=== PATIENT | male | born 1945 | race Caucasian/White ===

== ENCOUNTER 2019-06-28 10:36 | Day surgery (SDC) ==
[~2019-06-28 10:36] MED LIST: DIPRIVAN 1% ONE; QUELICIN (DOSE) ONE; ROBINUL ONE; XYLOCAINE-MPF 2% ONE
[2019-06-28] MEDS ORDERED: CLINDAMYCIN 900 MG/D5W 900 MG/50 ML IVPB ONE (10:48)
[2019-06-28] MEDS ORDERED: REGLAN ONE (10:48)
[2019-06-28] MEDS ORDERED: LR 1,000 ML ONE ×2 (10:48→11:35)
[2019-06-28] MEDS ORDERED: PEPCID ONE (10:48)
[2019-06-28] MEDS ORDERED: MARCAINE 0.5% ONE (11:34)
[2019-06-28] MEDS ORDERED: SODIUM CHLORIDE 0.9% ONE (11:34)
[2019-06-28] MEDS ORDERED: OFIRMEV 1000 MG/ISOTONIC SOLN 1,000 MG/100 ML BOTTLE ONE (11:57)
[2019-06-28] MEDS ORDERED: ZEMURON ONE ×2 (11:57→13:31)
[2019-06-28] MEDS ORDERED: DECADRON ONE (12:07)
[2019-06-28] MEDS ORDERED: ZOFRAN ONE (12:07)
[2019-06-28] MEDS ORDERED: TORADOL ONE (12:07)
[2019-06-28] MEDS ORDERED: EPHEDRINE ONE (12:13)
[2019-06-28] MEDS ORDERED: FENTANYL ONE (12:30)
[2019-06-28] MEDS ORDERED: NEOSTIGMINE ONE (13:31)
[2019-06-28] MEDS ORDERED: ROBINUL ONE (13:32)
[2019-06-28] MEDS ORDERED: ZOFRAN IV PRN (14:53)
[2019-06-28] MEDS ORDERED: MORPHINE IV PRN (14:53)
[2019-06-28] MEDS: NORCO-7.5 PO PRN ×2 (17:41→21:47)
--- NOTE | 2019-06-28 20:47 | OPERATIVE NOTE ---
PROCEDURE DATE: 06/28/2019 PREOPERATIVE DIAGNOSIS: Symptomatic cholelithiasis. POSTOPERATIVE DIAGNOSIS: Cholelithiasis with chronic fibrotic cholecystitis. PROCEDURE PERFORMED: Fenestrating cholecystectomy. ANESTHESIA: General. INDICATIONS: A gentleman who has had several episodes of right upper quadrant pain that seemed to be self-limiting resolved. He had gallstones noted on ultrasound. ESTIMATED BLOOD LOSS: 20 mL. SPECIMENS: Gallbladder and gallstones. OPERATIVE FINDINGS: There was a densely inflamed gallbladder with very thickened rind. There were dense, inseparable adhesions between the transverse colon, the duodenum, and the infundibulum of the gallbladder. Several stones within the lumen. 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 OPERATIVE NOTE: Risks, benefits, and alternatives were discussed. Patient consented to the procedure. Seen preoperatively. Surgical site was confirmed. He was taken to the operating room and placed in supine position. General anesthesia was induced. The abdomen was prepped with chlorhexidine solution after hair was removed with clippers, and draped in the usual fashion. After time-out, a supraumbilical incision was made, carried down to the fascia. The fascia was incised and the abdomen was entered in open controlled fashion. A 12 mm Lupe trocar was placed. We then placed 3 additional 5 mm trocars across the costal margin. The gallbladder was grasped and retracted cephalad. The transverse colon was densely adherent up to this. We took down some of the omentum and began our dissection down the body of the gallbladder, but we encountered dense fibrotic adhesions that were inseparable from what we felt was the transverse colon. We could not enter a safe plane. Openings were made in the gallbladder and we inspected the plane both from inside the gallbladder and externally. Stones were removed with a stone grasper after upsizing the epigastric port to a 10 mm. After working carefully for an hour, we feared that we would injure the colon or the duodenum, and as such, even more concerning would be the portal structures which were inseparable from this inflammatory process. As such, we elected to perform a fenestrating cholecystectomy. We removed the gallbladder at the infundibulum body junction, and we were able to safely separate the posterior wall from the gallbladder fossa, leaving the infundibulum intact. The stones were all removed. We cauterized the mucosa. We did not feel that we had injured the colon or the duodenum during this. We observed. I did not see any clear evidence of bile leaking in a retrograde fashion. We did attempt to obliterate and somewhat reapproximate the infundibulum with clips, but this was, for the most part, unsuccessful, and a drain was left in the gallbladder fossa. We secured it through the lateral port with a nylon suture. We then closed the fascia, bringing the gallbladder out with an EndoCatch bag using 0 Vicryl. Skin was closed with Monocryl. Dermabond was applied. He was awoken and transferred to Recovery where his drain remained serosanguineous. We will observe him tonight for possible bile leak and need for ERCP. I discussed these findings with the family and the patient. cc: Harinder Gonzales MD
[2019-06-28] MEDS: MELATONIN PO SCH (23:09)
[2019-06-29] MEDS: PERIDEX MT SCH ×3 (01:08→22:05)
[2019-06-29] MEDS: LR 1,000 ML IV SCH ×3 (02:36→23:35)
[2019-06-29] MEDS: PROTONIX PO SCH ×2 (05:48→07:57)
[2019-06-29] MEDS: NORCO-7.5 PO PRN ×3 (05:48→22:04)
[2019-06-29] MEDS: TENORMIN PO SCH (08:01)
[2019-06-29] MEDS ORDERED: INDOCIN ONE (12:08)
[2019-06-29] MEDS ORDERED: DIPRIVAN 1% ONE ×3 (13:05→14:14)
[2019-06-29] MEDS ORDERED: XYLOCAINE-MPF 2% ONE (13:05)
[2019-06-29] MEDS ORDERED: FENTANYL ONE (13:07)
[2019-06-29] MEDS ORDERED: GLUCAGON ONE (14:11)
--- NOTE | 2019-06-29 14:41 | ENDOSCOPY OPERATIVE NOTE ---
[facility] ENDOSCOPY OPERATIVE NOTE , ERCP PROCEDURE REPORT EXAM DATE: 06/29/2019 PATIENT NAME: Farhan Alejandro MR #: [id number] BIRTHDATE: 1945 ATTENDING: Ludin Welch MD STATUS: inpatient P[facility]IDE ATTENDANT: Isabella Rubio, Betsey Cook, and Hina Darling INDICATIONS: The patient is a 73 yr old male here for an ERCP due to suspected or rule out a bile le ak. PROCEDURE PERFORMED: ERCP with cannulation of papilla MEDICATIONS: Per Anesthesia CONSENT: The patient understands the risks and benefits of the procedure and understands that these r isks include, but are not limited to: sedation, allergic reaction, infection, perforation and/or bleeding. Alternative means of evaluation and treatment include, among others: physical exam, x-rays, and/or surgical intervention. The patient elects to proceed with this endoscopic procedure. HISTORY AND PHYSICAL: 06/29/2019 DESCRIPTION OF PROCEDURE: During intra-op preparation period all mechanical and medical equipment was checked for proper function. Hand hygiene and appropriate measures for infection prevention was taken. After the risks, benefits and alternatives of the procedure were thoroughly explained, Informed was verified, confirmed and timeout was successfully executed by the treatment team. With the patient in left semi-prone position, medications were admini stered intravenously.The [id number] ([id number]) and [id number] ([id number]) was passed from the mouth into the esoph eve and further advanced from the esophagus into the stomach. From stomach scope was directed to the second portion o f the duodenum. Major papilla was aligned with the duodenoscope. The scope position was confirmed fluoroscopically. R est of the findings/therapeutics are given below. The scope was then completely withdrawn from the patient and t he procedure completed. The pulse, BP, and O2 saturation were monitored and documented by the physician and the nu ing staff throughout the entire procedure. The patient was cared for as planned according to standard protocol. The patient was then discharged to recovery in stable condition and with appropriate post procedure care. ERCP: A crabbing machine operator film prior to endoscope insertion appeared normal. The Major Papilla was located in t he second portion of the duodenum. The papilla appeared smaller than normal. Common bile duct could not be cannulate d. ADVERSE EVENT: There were no complications. IMPRESSIONS: CBD cannulation attempted. RECOMMENDATIONS: 1. Resume current medications 2. Repeat liver function test in 1 day(s) 3. Disposition 4. Return to floor when standard parameters are met 5. Will follow. REPEAT EXAM: Return in 2 days for ERCP. Ludin Welch MD eSigned: Ludin Welch MD 06/29/2019 2:41 PM cc: Sky Gonzales MD PATIENT NAME: Farhan Alejandro MR#: [id number]
--- NOTE | 2019-06-29 15:03 | GASTROENTEROLOGY CONSULTATION ---
DATE: 06/29/2019 REASON FOR CONSULTATION: Request for ERCP. HISTORY OF PRESENT ILLNESS: This is a 73-year-old, white male who came in for an outpatient cholecystectomy on 06/28/2019. Surgery was performed by Dr. Gonzales. During surgery, findings showed densely inflamed gallbladder with very thickened rind with dense, inseparable adhesions between the transverse colon, the duodenum, and the infundibulum of the gallbladder with several stones noted in the lumen and apparent chronically occluded cystic duct. Patient, currently at the time of my evaluation, is in no acute distress. Dr. Welch was consulted for an ERCP for a possible bile leak. The patient states he had a gallbladder attack in early June. PAST MEDICAL HISTORY: Coronary artery disease with history of angioplasty, history of hypertension, hypercholesterolemia. PAST SURGICAL HISTORY: Angioplasty at [facility], history of wisdom teeth extraction, history of kidney stones, recent cholecystectomy on 06/28/2019. SOCIAL HISTORY: Positive for alcohol use. Denies tobacco use. He is . He has 2 children. He is retired. ALLERGIES: Ceclor, causing rash. Penicillins, causing rash. HOME MEDICATIONS: Atenolol 50 mg daily, Pradaxa 1 twice a day, folic acid 1 mg daily, Protonix 40 mg daily, rosuvastatin 20 mg daily. REVIEW OF SYSTEMS: Per history of present illness. PHYSICAL EXAMINATION: Vital Signs: Temperature 98.2 degrees, pulse 83, respirations 18, blood pressure 122/61. General: The patient is awake and alert, in no acute distress. HEENT: Normocephalic, atraumatic. Pupils equal, round, reactive to light. Sclerae are nonicteric. Respiratory: Lung sounds clear bilaterally. Cardiovascular: Regular rate and rhythm. Abdomen: With laparoscopic incisions intact. LES drain to right quadrant with dark bile-colored drainage noted in the bulb. Extremities: No lower extremity edema noted. Neurological: Cranial nerves 2- 12 grossly intact. Patient is awake, alert, oriented to person, place, and time. LABORATORY DATA: From 06/09/2019, hematology: WBC 8.73, hemoglobin 14.5, hematocrit 43.7, MCV 89.7, platelets 166,000. Chemistry: Sodium 138, potassium 4.4, chloride 99, CO2 of 25, BUN 15, creatinine 0.9, glucose 117, calcium 9.3. Total bilirubin 0.30, AST 18, ALT 13, alkaline phosphatase 60, lipase 25. ASSESSMENT AND PLAN: 1. Cholelithiasis, status post cholecystectomy on 06/28/2019. 2. Possible bile duct stone/choledocholithiasis and possible bile leak. Requesting endoscopic retrograde cholangiopancreatography. 3. History of coronary artery disease, history of angioplasty, on Pradaxa. Pradaxa has been held since Friday. 4. I have gone over the endoscopic retrograde cholangiopancreatography procedure along with benefits and risks.; I have given the patient education material and answered his questions. We will proceed with endoscopic retrograde cholangiopancreatography today. Further plans to be made as needed. I have discussed this case with Dr. Welch. Thank you for this consultation. Dictated by BLAYNE Castellon for Ludin Welch MD cc: BLAYNE Dale MD R. Tyler Harney, MD
--- NOTE | 2019-06-29 20:51 | GENERAL SURGERY PROGRESS NOTE ---
DATE: 06/29/2019 SUBJECTIVE: He had bile in his drain overnight. He is overall doing well. Not much pain. No fevers. No tachycardia. Blood pressure 122/61. General he is alert. There is no jaundice. Abdomen is soft. LES drain has some bilious output, but not a large amount, looks like approximately 260 overnight. He has had no labs this morning. ASSESSMENT AND PLAN: A 73-year-old gentleman status post [*] cholecystectomy for severe fibrotic cholecystitis and inability to identify the portal structures with dense adhesions to the colon and the duodenum. He has a bile leak, not unexpected. I have asked Dr. Bray to do an ERCP. We will follow these results. It seems to be a pretty low volume leak and he seems to be well controlled with his drain. We will follow him along. cc: Harinder Gonzales MD
[2019-06-29] MEDS ORDERED: CRESTOR PO SCH (21:00)
[2019-06-29] MEDS ORDERED: MELATONIN PO SCH (21:00)
[2019-06-29] MEDS: MELATONIN PO SCH (22:04)
[2019-06-30] MEDS: NORCO-7.5 PO PRN ×2 (02:46→10:32)
[2019-06-30] MEDS: PROTONIX PO SCH (06:52)
[2019-06-30 07:15] LABS: BASO# 0.01 X1000 (0.0-0.2); BASO% 0.1 % (0.0-0.8); EOS# 0.07 X1000 (0.0-0.7); EOS% 0.9 % (0.0-10.0); HEMATOCRIT 36.3 % (42.0-52.0); HEMOGLOBIN 11.8 g/dL (14.0-18.0); LYMPH# 1.41 X1000 (1.2-3.4); LYMPH% 18.6 % (20.5-51.1); MCH 30.5 PG (27-31); MCHC 32.5 g/dL (33-37); MCV 93.8 FL (81-99); MONO# 1.15 X1000 (0.11-0.59); MONO% 15.2 % (1.7-9.3); MPV 10.8 FL (7.4-10.4); NEUT# 4.94 X1000 (1.4-6.5); NEUT% 65.2 % (42.2-75.2); PLT 200 X1000 (130-400); RBC 3.87 XMIL (4.7-6.1); RDW 13.3 % (11.5-14.5); WBC 7.58 X1000 (4.8-10.8)
[2019-06-30 07:31] LABS: AGAP 9; ALB/GLOB RATIO 1.2; ALBUMIN 3.3 g/dL (3.5-5.0); ALKALINE PHOSPHATASE 43 U/L (32-122); BUN 10 mg/dL (8-22); CALCIUM 8.4 mg/dL (8.8-10.2); CHLORIDE 103 mmol/L (98-107); COSMO 274; CREATININE 0.8 mg/dL (0.7-1.2); ESTIMATED GFR > 60; GLUCOSE 92 mg/dL (70-104); GOT 21 U/L (10-34); GPT 15 U/L (10-44); POTASSIUM 4.1 mmol/L (3.5-5.1); SODIUM 138 mmol/L (136-145); TCO2 26 mmol/L (25-35); TOTAL BILIRUBIN 0.43 mg/dL (0.20-1.00); TOTAL PROTEIN 6.1 g/dL (6.3-8.3)
[2019-06-30 07:43] VITALS: BP 119/74
[2019-06-30] MEDS: PERIDEX MT SCH (09:03)
[2019-06-30] MEDS: TENORMIN PO SCH (09:03)
--- NOTE | 2019-07-01 11:23 | DISCHARGE SUMMARY ---
ADMISSION DATE: 06/28/2019 DISCHARGE DATE: 06/30/2019 ADMITTING DIAGNOSIS: Symptomatic cholelithiasis. DISCHARGE DIAGNOSIS: Symptomatic cholelithiasis with chronic fibrotic cholecystitis. PROCEDURE PERFORMED: 1. Laparoscopic cholecystectomy, fenestrating. 2. Attempted ERCP by Dr. Welch. HISTORY OF PRESENT ILLNESS: A 73-year-old gentleman who has had episodic pain. This worsened over the last month, but it has been ongoing for the last 7 years he states. Ultrasound showed gallstones. HOSPITAL COURSE: Patient was taken as an outpatient for above procedure. For details, please see dictated operative note. We admitted him overnight given the complicated nature of the surgery. He developed a low volume bile leak. We attempted ERCP postoperative day 1, but was unable to cannulate the common bile duct. His output from his drain remained low. His white count was normal. He was having bowel function. LFTs were normal. His incisions were intact. It was felt after thorough discussion he would like for us to follow this as an outpatient. I do think it is reasonable that this will resolve given the low volume nature. However, plans are to see me as an outpatient and possible outpatient ERCP by Dr. Welch. DISCHARGE MEDICATION: He has pain medication, nausea medicine. DISCHARGE INSTRUCTIONS: Given in written and verbal format. He is given detailed drain care instructions. He will see me Friday this week for follow-up. We will make determination for possible need for ERCP early next week. I have given him my cell phone number and he will call with any issues. cc: Harinder Gonzales MD
== END 2019-06-30 11:18 | disposition home or self-care (01) ==
LOC: OPS 10:36 → 4N 10:36 → PAT 10:36 → OPS 06-30 11:18
PROVIDERS: ATTEND Surgery
PROC: EN.ERCP (2019-06-29 13:30)